=== PATIENT | female | born 1995 | race Caucasian/White ===

== ENCOUNTER 2017-06-15 21:26 | Emergency (ER) | payer OTHER ==
[~2017-06-15] VITALS: Ht 160 cm; Wt 56.7 kg
[2017-06-15 21:26] VITALS: BP 126/64
[2017-06-15] MEDS ORDERED: TRAM-48 PO (22:29)
--- NOTE | 2017-06-15 22:29 | PHYS DOC ---
Past History Past Medical History: No Pertinent History Past Surgical History: Tonsillectomy Alcohol Use: Occasionally Drug Use: None Adult General Chief Complaint Chief Complaint: LOWEREXTREMITY INJURY HPI HPI Patient is a 22-year-old female who presents here today secondary to pain to her right ankle and right calf that she sustained from an injury while she was 4 wheeling yesterday. Patient reports that she was ambulatory with discomfort. Patient's tetanus is up-to-date. Patient also is complaining of blisters to her hand from 4 wheeling. Patient denies any other symptomatology. Patient has any fevers shakes chills nausea vomiting diarrhea. Patient denies any head trauma or neck pain. Patient denies any hip or abdominal discomfort. Review of systems: Constitutional: Denies fever or chills Eyes: Denies change in visual acuity, redness, or eye pain HENT: Denies nasal congestion or sore throat All other review systems are negative except as documented in the history of present illness portion. Physical exam: Constitutional: Well developed, well nourished, no acute distress, non-toxic appearance. HENT: Normocephalic, atraumatic, bilateral external ears normal, oropharynx moist, no oral exudates, nose normal. Eyes: PERRLA, EOMI, conjunctiva normal, no discharge. Neck: Normal range of motion, no tenderness, supple, no stridor. Cardiovascular:Heart rate regular rhythm Lungs & Thorax: Bilateral breath sounds clear to auscultation Abdomen: Bowel sounds normal, soft, no tenderness, no masses, no pulsatile masses. Skin: Warm, dry, no erythema, no rash. Back: No tenderness, no CVA tenderness. Extremities: Patient with soft tissue swelling to her left calf and bruising. There is no point bony tenderness to her tib-fib in her mid calf region. Patient with soft tissue swelling to her medial malleolus on her right ankle. There is no point bony tenderness or bony deformity. Neurologic: Alert and oriented X 3, normal motor function, normal sensory function, no focal deficits noted. Psychologic: Affect normal, judgement normal, mood normal. X-ray of right ankle revealed no acute fracture. Assessment and plan 22-year-old female with right ankle sprain secondary to injury while 4 wheeling yesterday. Patient is able fabiola and weightbearing. We'll place an Isai wrap on her ankle and we will discharge her to home with Ultram to assist with her pain. Review of Systems Review of Systems Constitutional: Denies fever or chills [] Eyes: Denies change in visual acuity, redness, or eye pain [] HENT: Denies nasal congestion or sore throat [] Respiratory: Denies cough or shortness of breath [] Cardiovascular: No additional information not addressed in HPI [] GI: Denies abdominal pain, nausea, vomiting, bloody stools or diarrhea [] : Denies dysuria or hematuria [] Musculoskeletal: Denies back pain or joint pain [] Integument: Denies rash or skin lesions [] Neurologic: Denies headache, focal weakness or sensory changes [] Endocrine: Denies polyuria or polydipsia [] Allergies Allergies Allergies Coded Allergies Type Severity Reaction Last Updated Verified magnesium Allergy Unknown 10/29/16 Yes Physical Exam Physical Exam Constitutional: Well developed, well nourished, no acute distress, non-toxic appearance. [] HENT: Normocephalic, atraumatic, bilateral external ears normal, oropharynx moist, no oral exudates, nose normal. [] Eyes: PERRLA, EOMI, conjunctiva normal, no discharge. [] Neck: Normal range of motion, no tenderness, supple, no stridor. [] Cardiovascular:Heart rate regular rhythm, no murmur [] Lungs & Thorax: Bilateral breath sounds clear to auscultation [] Abdomen: Bowel sounds normal, soft, no tenderness, no masses, no pulsatile masses. [] Skin: Warm, dry, no erythema, no rash. [] Back: No tenderness, no CVA tenderness. [] Extremities: No tenderness, no cyanosis, no clubbing, ROM intact, no edema. [] Neurologic: Alert and oriented X 3, normal motor function, normal sensory function, no focal deficits noted. [] Psychologic: Affect normal, judgement normal, mood normal. [] Current Patient Data Vital Signs Vital Signs Date Time Temp Pulse Resp B/P (MAP) Pulse Ox O2 Delivery O2 Flow Rate FiO2 06/15/17 21:26 98.0 94 20 100 Room Air Lab Results Laboratory Tests Test 06/15/17 22:09 POC Urine HCG, Qualitative hcg negative (Negative) EKG EKG [] Radiology/Procedures Radiology/Procedures [] Course & Med Decision Making Course & Med Decision Making Pertinent Labs and Imaging studies reviewed. (See chart for details) [] Dragon Disclaimer Dragon Disclaimer This chart was dictated in whole or in part using Voice Recognition software in a busy, high-work load, and often noisy Emergency Department environment. It may contain unintended and wholly unrecognized errors or omissions. Departure Departure: Impression: Primary Impression: Ankle sprain Additional Impression: Hematoma of right lower extremity Disposition: HOME, SELF-CARE Condition: IMPROVED Referrals: VIRA SABA (PCP) Patient Instructions: Ankle Sprain Scripts Tramadol Hcl (ULTRAM) 50 Mg Tablet 50 MG PO PRN Q6HRS Y for PAIN, #10 TAB Prov: NICOLASA ANGEL MD 06/15/17 Problem Qualifiers NICOLASA ANGEL MD Jun 15, 2017 22:29
[2017-06-15] MEDS ORDERED: traMADol 50 MG TABLET PO ONE (22:30)
--- NOTE | 2017-06-16 08:25 | RAD ---
Right ankle, 3 views, 06/15/2017: History: Fall, ankle pain No fracture or dislocation is identified. The soft tissues are unremarkable. IMPRESSION: No acute right ankle abnormality is detected.
== END 2017-06-15 22:40 | disposition home or self-care (01) ==
LOC: ER 21:26
DX: S93.401A Sprain of unspecified ligament of right ankle, initial encounter (principal); S80.11XA Contusion of right lower leg, initial encounter; Z88.8 Allergy status to other drugs, medicaments and biological substances; X58.XXXA Exposure to other specified factors, initial encounter; Y93.89 Activity, other specified; Y99.8 Other external cause status; Y92.89 Other specified places as the place of occurrence of the external cause
CPT/HCPCS: 73610; 81025; 99284-25